=== PATIENT | male | born 1940 | race Caucasian/White ===

== ENCOUNTER 2021-02-07 12:06 | Inpatient (IN) ==
[2021-02-07 13:05] LABS: Basophils % 0.2 %; Eosinophils % 0.2 %
[2021-02-07 13:07] LABS: Hematocrit 45.8 % (37.5-50.1); Immature Granulocytes % 0.6 % (0-4); Immature Platelets 6.7 % (1.1-6.1); Lymphocytes # 1.4 K/mcL (0.6-4.6); Lymphocytes % 29.1 %; Mean Corpuscular HGB Conc 32.8 g/dL (31.6-35.5); Mean Corpuscular Hemoglobin 29.9 pg (28.0-33.3); Mean Corpuscular Volume 91.2 fL (83.0-100.0); Mean Platelet Volume 10.9 fL (9.4-12.4); Monocytes # 0.3 K/mcL (0.0-1.3); Monocytes % 6.8 %; Platelet Count 106 K/mcL (140-400); Red Blood Count 5.02 M/mcL (4.19-5.50); Red Cell Distribution Width 12.8 % (11.5-14.5); Segmented Neutrophils % 63.1 %; White Blood Count 4.8 K/mcL (4.3-11.1)
[2021-02-07 13:09] LABS: Platelet Estimate Slight Decrease (Normal)
[2021-02-07 13:13] LABS: INR 1.1; Prothrombin Time 11.9 Seconds (9.4-12.1)
[2021-02-07 13:15] LABS: Activated Partial Thrombo Time 30.3 Seconds (26.0-36.0)
[2021-02-07 13:17] LABS: VBG HCO3 26 mEq/L (21-27); VBG PCO2 47 mmHg (41-51); VBG PH 7.35 pH Units (7.32-7.42); VBG PO2 29 mmHg (25-50)
[2021-02-07 13:21] LABS: Alanine Aminotransferase 41 Units/L (7-52); Albumin 3.5 g/dL (3.5-5.7); Albumin/Globulin Ratio 1.2 (1.1-2.2); Alkaline Phosphatase 70 Units/L (34-104); Aspartate Amino Transferase 73 Units/L (13-39); BUN/Creatinine Ratio 20 (6-26); Bilirubin,Total 0.8 mg/dL (0.3-1.0); Blood Urea Nitrogen 22 mg/dL (8-23); Calcium 8.9 mg/dL (8.6-10.3); Carbon Dioxide 23 mEq/L (23-29); Chloride 102 mEq/L (98-107); Glucose 132 mg/dL (70-105); Osmolality,Calculated 285 (280-300); Potassium 4.2 mEq/L (3.5-5.1); Sodium 135 mEq/L (136-145); Total Protein 6.5 g/dL (6.4-8.9); eGFR For African Americans > 60 (> 60); eGFR For Non-African Americans > 60 (> 60)
[2021-02-07 13:31] LABS: Troponin I 0.16 ng/mL (< 0.04)
[2021-02-07] MEDS ORDERED: Isovue-370 500 ML BOTTLE IVP ONE (13:36)
[2021-02-07] MEDS ORDERED: Aspirin 325 MG TABLET PO ONE (15:25)
[2021-02-07] MEDS ORDERED: Dexamethasone Sodium Phos/PF 10 MG/ML VIAL IVP ONE (15:26)
[2021-02-07] MEDS ORDERED: Naloxone 0.4 MG/ML INJ IVP PRN (17:04)
[2021-02-07] MEDS: 0.9 % Sodium Chloride 1,000 ML IVC SCH (17:59)
[2021-02-08] MEDS ORDERED: 0.9 % Sodium Chloride 1,000 ML IV ONE (04:34)
[2021-02-08] MEDS: *HR* Enoxaparin 40 MG/0.4 ML SYRINGE SQ SCH (05:54)
[2021-02-08] MEDS: 0.9 % Sodium Chloride 1,000 ML IVC SCH (05:56)
[2021-02-08] MEDS: dexAMETHasone 4 MG TABLET PO SCH (18:30)
[2021-02-09] MEDS: *HR* Enoxaparin 40 MG/0.4 ML SYRINGE SQ SCH (05:13)
[2021-02-09 05:47] LABS: Hematocrit 38.4 % (37.5-50.1); Immature Granulocytes % 0.7 % (0-4); Lymphocytes # 1.1 K/mcL (0.6-4.6); Lymphocytes % 19.2 %; Mean Corpuscular HGB Conc 32.8 g/dL (31.6-35.5); Mean Corpuscular Hemoglobin 29.7 pg (28.0-33.3); Mean Corpuscular Volume 90.6 fL (83.0-100.0); Mean Platelet Volume 10.7 fL (9.4-12.4); Monocytes # 0.3 K/mcL (0.0-1.3); Monocytes % 5.2 %; Neutrophils # 4.2 K/mcL (1.6-8.9); Platelet Count 129 K/mcL (140-400); Red Blood Count 4.24 M/mcL (4.19-5.50); Red Cell Distribution Width 12.5 % (11.5-14.5); Segmented Neutrophils % 74.9 %; White Blood Count 5.6 K/mcL (4.3-11.1)
[2021-02-09 05:48] LABS: Hemoglobin 12.6 g/dL (12.9-16.9)
[2021-02-09 06:04] LABS: BUN/Creatinine Ratio 33 (6-26); Blood Urea Nitrogen 28 mg/dL (8-23); Calcium 8.1 mg/dL (8.6-10.3); Carbon Dioxide 21 mEq/L (23-29); Chloride 111 mEq/L (98-107); Glucose 184 mg/dL (70-105); Osmolality,Calculated 296 (280-300); Potassium 4.4 mEq/L (3.5-5.1); Sodium 138 mEq/L (136-145); eGFR For African Americans > 60 (> 60); eGFR For Non-African Americans > 60 (> 60)
[2021-02-09] MEDS: dexAMETHasone 4 MG TABLET PO SCH (08:19)
[2021-02-10] MEDS: *HR* Enoxaparin 40 MG/0.4 ML SYRINGE SQ SCH (04:57)
[2021-02-10 05:37] LABS: Basophils % 0.2 %; Hematocrit 38.7 % (37.5-50.1); Hemoglobin 13.1 g/dL (12.9-16.9); Immature Granulocytes % 0.7 % (0-4); Lymphocytes % 17.6 %; Mean Corpuscular HGB Conc 33.9 g/dL (31.6-35.5); Mean Corpuscular Hemoglobin 30.5 pg (28.0-33.3); Mean Corpuscular Volume 90.2 fL (83.0-100.0); Mean Platelet Volume 10.3 fL (9.4-12.4); Monocytes # 0.4 K/mcL (0.0-1.3); Monocytes % 6.2 %; Neutrophils # 4.4 K/mcL (1.6-8.9); Platelet Count 167 K/mcL (140-400); Red Blood Count 4.29 M/mcL (4.19-5.50); Red Cell Distribution Width 12.4 % (11.5-14.5); Segmented Neutrophils % 75.3 %; White Blood Count 5.8 K/mcL (4.3-11.1)
[2021-02-10 06:16] LABS: BUN/Creatinine Ratio 36 (6-26); Blood Urea Nitrogen 30 mg/dL (8-23); Calcium 8.4 mg/dL (8.6-10.3); Carbon Dioxide 21 mEq/L (23-29); Chloride 112 mEq/L (98-107); Glucose 166 mg/dL (70-105); Osmolality,Calculated 302 (280-300); Potassium 4.2 mEq/L (3.5-5.1); Sodium 141 mEq/L (136-145); eGFR For African Americans > 60 (> 60); eGFR For Non-African Americans > 60 (> 60)
[2021-02-10] MEDS: dexAMETHasone 4 MG TABLET PO SCH ×2 (08:36→09:00)
[2021-02-10] MEDS ORDERED: Haloperidol Lactate 5 MG/ML VIAL IM ONE (13:15)
[2021-02-10] MEDS ORDERED: *HR* Metoprolol 5 MG/5 ML VIAL IVP PRN (14:47)
[2021-02-10] MEDS ORDERED: Isovue-370 500 ML BOTTLE IVP ONE (15:04)
[2021-02-10] MEDS ORDERED: Magnesium Sulfate 1 GM/102 ML PIGGYBACK IVPB ONE (20:00)
[2021-02-10] MEDS: Dexmedetomidine HCl 400 MCG/100 ML MLS IVC SCH (21:18)
[2021-02-10] MEDS ORDERED: Acetaminophen 325 MG TABLET PO PRN (23:02)
[2021-02-10] MEDS ORDERED: Acetaminophen 650 MG RECTAL SUPP RC PRN (23:24)
[2021-02-11] MEDS ORDERED: OLANZapine 10 MG VIAL IM ONE (02:19)
[2021-02-11 05:05] LABS: Basophils % 0.1 %; Hematocrit 39.6 % (37.5-50.1); Hemoglobin 13.3 g/dL (12.9-16.9); Immature Granulocytes % 0.7 % (0-4); Lymphocytes # 1.2 K/mcL (0.6-4.6); Lymphocytes % 15.8 %; Mean Corpuscular HGB Conc 33.6 g/dL (31.6-35.5); Mean Corpuscular Hemoglobin 30.7 pg (28.0-33.3); Mean Corpuscular Volume 91.5 fL (83.0-100.0); Mean Platelet Volume 10.2 fL (9.4-12.4); Monocytes # 0.4 K/mcL (0.0-1.3); Neutrophils # 5.9 K/mcL (1.6-8.9); Platelet Count 186 K/mcL (140-400); Red Blood Count 4.33 M/mcL (4.19-5.50); Red Cell Distribution Width 12.3 % (11.5-14.5); Segmented Neutrophils % 78.4 %; White Blood Count 7.6 K/mcL (4.3-11.1)
[2021-02-11] MEDS: *HR* Enoxaparin 40 MG/0.4 ML SYRINGE SQ SCH (05:20)
[2021-02-11 05:36] LABS: Troponin I 0.06 ng/mL (< 0.04)
[2021-02-11 05:50] LABS: Alanine Aminotransferase 87 Units/L (7-52); Albumin/Globulin Ratio 1.2 (1.1-2.2); Alkaline Phosphatase 66 Units/L (34-104); Aspartate Amino Transferase 99 Units/L (13-39); BUN/Creatinine Ratio 30 (6-26); Bilirubin,Total 1.2 mg/dL (0.3-1.0); Blood Urea Nitrogen 36 mg/dL (8-23); Calcium 8.4 mg/dL (8.6-10.3); Carbon Dioxide 22 mEq/L (23-29); Chloride 113 mEq/L (98-107); Globulin 2.6 g/dL (2.4-3.5); Glucose 175 mg/dL (70-105); Magnesium 2.6 mg/dL (1.6-2.6); Osmolality,Calculated 313 (280-300); Potassium 3.9 mEq/L (3.5-5.1); Sodium 145 mEq/L (136-145); Total Protein 5.6 g/dL (6.4-8.9); eGFR For African Americans > 60 (> 60); eGFR For Non-African Americans 57 (> 60)
[2021-02-11] MEDS: dexAMETHasone 4 MG TABLET PO SCH (09:29)
[2021-02-11] MEDS: Piperacillin/Tazobactam 3.375 GM in 0.9 % Sodium Chloride Mini Bag 100 ML IVPB SCH ×3 (09:30→23:40)
[2021-02-11] MEDS ORDERED: OLANZapine 10 MG VIAL IM SCH (13:45)
[2021-02-11] MEDS: OLANZapine 10 MG VIAL IM SCH ×2 (16:14→21:03)
[2021-02-11] MEDS: Dexmedetomidine HCl 400 MCG/100 ML MLS IVC SCH ×2 (16:24→21:20)
[2021-02-12 03:56] LABS: Hemoglobin 13.8 g/dL (12.9-16.9); Mean Corpuscular HGB Conc 32.1 g/dL (31.6-35.5); Mean Corpuscular Hemoglobin 30.3 pg (28.0-33.3); Mean Corpuscular Volume 94.5 fL (83.0-100.0); Mean Platelet Volume 10.2 fL (9.4-12.4); Platelet Count 202 K/mcL (140-400); Red Blood Count 4.55 M/mcL (4.19-5.50); Red Cell Distribution Width 12.9 % (11.5-14.5); White Blood Count 6.4 K/mcL (4.3-11.1)
[2021-02-12 04:07] LABS: BUN/Creatinine Ratio 32 (6-26); Blood Urea Nitrogen 35 mg/dL (8-23); Calcium 8.8 mg/dL (8.6-10.3); Carbon Dioxide 20 mEq/L (23-29); Chloride 116 mEq/L (98-107); Glucose 153 mg/dL (70-105); Osmolality,Calculated 321 (280-300); Potassium 3.8 mEq/L (3.5-5.1); Sodium 150 mEq/L (136-145); eGFR For African Americans > 60 (> 60); eGFR For Non-African Americans > 60 (> 60)
[2021-02-12] MEDS: *HR* Enoxaparin 40 MG/0.4 ML SYRINGE SQ SCH (05:04)
[2021-02-12] MEDS ORDERED: WATER IM ONE (08:15)
[2021-02-12] MEDS ORDERED: [UNRECOGNIZED DRUG - OTHER] IM ONE (08:15)
[2021-02-12] MEDS: Piperacillin/Tazobactam 3.375 GM in 0.9 % Sodium Chloride Mini Bag 100 ML IVPB SCH ×2 (08:25→18:35)
[2021-02-12] MEDS: OLANZapine 10 MG VIAL IM SCH (08:27)
[2021-02-12] MEDS ORDERED: Morphine Sulfate Oral CONC 10 MG/0.5 ML ORAL.SYG SL PRN (11:29)
[2021-02-12] MEDS: D5% in Water 500 ML IVC SCH (13:18)
[2021-02-12] MEDS: Dexmedetomidine HCl 400 MCG/100 ML MLS IVC SCH (20:01)
[2021-02-13] MEDS: Piperacillin/Tazobactam 3.375 GM in 0.9 % Sodium Chloride Mini Bag 100 ML IVPB SCH ×3 (00:15→16:28)
[2021-02-13 06:08] LABS: BUN/Creatinine Ratio 36 (6-26); Blood Urea Nitrogen 36 mg/dL (8-23); Calcium 9.2 mg/dL (8.6-10.3); Carbon Dioxide 24 mEq/L (23-29); Chloride 115 mEq/L (98-107); Glucose 258 mg/dL (70-105); Osmolality,Calculated 323 (280-300); Potassium 3.9 mEq/L (3.5-5.1); Sodium 148 mEq/L (136-145); eGFR For African Americans > 60 (> 60); eGFR For Non-African Americans > 60 (> 60)
[2021-02-13] MEDS: Dexmedetomidine HCl 400 MCG/100 ML MLS IVC SCH (12:41)
[2021-02-13] MEDS: *HR* Enoxaparin 40 MG/0.4 ML SYRINGE SQ SCH (16:16)
[2021-02-13] MEDS ORDERED: D5% in Water 1,000 ML IVC SCH (16:30)
[2021-02-13] MEDS ORDERED: OLANZapine 10 MG VIAL IM ONE ×2 (22:56→23:40)
[2021-02-13] MEDS ORDERED: Water for inj. (sterile) 10 ML ONE ×2 (23:02→23:48)
[2021-02-14] MEDS: Piperacillin/Tazobactam 3.375 GM in 0.9 % Sodium Chloride Mini Bag 100 ML IVPB SCH ×3 (01:45→18:13)
[2021-02-14] MEDS: *HR* Enoxaparin 40 MG/0.4 ML SYRINGE SQ SCH (06:13)
[2021-02-14] MEDS: Dexmedetomidine HCl 400 MCG/100 ML MLS IVC SCH ×2 (06:38→18:07)
[2021-02-14 09:24] LABS: Hemoglobin 13.6 g/dL (12.9-16.9); Mean Corpuscular HGB Conc 32.4 g/dL (31.6-35.5); Mean Corpuscular Hemoglobin 30.1 pg (28.0-33.3); Mean Corpuscular Volume 92.9 fL (83.0-100.0); Mean Platelet Volume 9.8 fL (9.4-12.4); Platelet Count 223 K/mcL (140-400); Red Blood Count 4.52 M/mcL (4.19-5.50); Red Cell Distribution Width 12.9 % (11.5-14.5); White Blood Count 7.3 K/mcL (4.3-11.1)
[2021-02-14 09:45] LABS: Alanine Aminotransferase 46 Units/L (7-52); Albumin 2.8 g/dL (3.5-5.7); Albumin/Globulin Ratio 1.1 (1.1-2.2); Alkaline Phosphatase 59 Units/L (34-104); Aspartate Amino Transferase 41 Units/L (13-39); BUN/Creatinine Ratio 47 (6-26); Bilirubin,Total 0.8 mg/dL (0.3-1.0); Blood Urea Nitrogen 42 mg/dL (8-23); Calcium 8.9 mg/dL (8.6-10.3); Carbon Dioxide 24 mEq/L (23-29); Chloride 120 mEq/L (98-107); Globulin 2.6 g/dL (2.4-3.5); Glucose 174 mg/dL (70-105); Magnesium 2.5 mg/dL (1.6-2.6); Osmolality,Calculated 327 (280-300); Potassium 3.8 mEq/L (3.5-5.1); Sodium 151 mEq/L (136-145); Total Protein 5.4 g/dL (6.4-8.9); eGFR For African Americans > 60 (> 60); eGFR For Non-African Americans > 60 (> 60)
[2021-02-14] MEDS ORDERED: Vancomycin 1,250 MG/262.5 ML IV.SOLN IVPB SCH (18:00)
[2021-02-14] MEDS: D5% in Water 1,000 ML IVC SCH (21:38)
[2021-02-15] MEDS: Piperacillin/Tazobactam 3.375 GM in 0.9 % Sodium Chloride Mini Bag 100 ML IVPB SCH ×3 (02:14→16:19)
[2021-02-15] MEDS: Dexmedetomidine HCl 400 MCG/100 ML MLS IVC SCH ×2 (03:31→10:41)
[2021-02-15 05:55] LABS: Mean Corpuscular HGB Conc 31.7 g/dL (31.6-35.5); Mean Corpuscular Hemoglobin 29.5 pg (28.0-33.3); Mean Corpuscular Volume 93.2 fL (83.0-100.0); Mean Platelet Volume 9.9 fL (9.4-12.4); Platelet Count 216 K/mcL (140-400); White Blood Count 6.1 K/mcL (4.3-11.1)
[2021-02-15 06:19] LABS: BUN/Creatinine Ratio 41 (6-26); Blood Urea Nitrogen 41 mg/dL (8-23); Calcium 8.5 mg/dL (8.6-10.3); Carbon Dioxide 23 mEq/L (23-29); Chloride 118 mEq/L (98-107); Glucose 255 mg/dL (70-105); Osmolality,Calculated 325 (280-300); Potassium 4.1 mEq/L (3.5-5.1); Sodium 148 mEq/L (136-145); eGFR For African Americans > 60 (> 60); eGFR For Non-African Americans > 60 (> 60)
[2021-02-15] MEDS: *HR* Enoxaparin 40 MG/0.4 ML SYRINGE SQ SCH (06:51)
[2021-02-15] MEDS ORDERED: Morphine Sulfate 2 MG/ML SYRINGE IVP PRN (14:08)
[2021-02-15] MEDS: D5% in Water 1,000 ML IVC SCH (15:46)
[2021-02-15] MEDS ORDERED: Atropine 1% Opth Drops 100 DROP/5 ML BOTTLE SL PRN (17:22)
[2021-02-15] MEDS ORDERED: *HR* LORazepam 2 MG/ML VIAL IVP PRN (17:22)
[2021-02-15] MEDS: D5% in Water 500 ML IVC SCH ×3 (19:29→21:13)
[2021-02-15] MEDS: *HR* LORazepam Oral Conc 2 MG/ML SL PRN (22:06)
[2021-02-16] MEDS: D5% in Water 500 ML IVC SCH ×2 (00:13→00:14)
[2021-02-16] MEDS: *HR* LORazepam Oral Conc 2 MG/ML SL PRN ×2 (08:10→11:50)
[2021-02-16] MEDS: Morphine Sulfate Oral CONC 10 MG/0.5 ML ORAL.SYG SL PRN ×2 (09:51→21:38)
[2021-02-16] MEDS ORDERED: Scopolamine Patch 1.5 MG PATCH.TD72 TD SCH (12:30)
[2021-02-17] MEDS ORDERED: Morphine Sulfate Oral CONC 10 MG/0.5 ML ORAL.SYG SL ONE
[2021-02-17] MEDS: Morphine Sulfate Oral CONC 10 MG/0.5 ML ORAL.SYG SL PRN ×5 (02:43→22:24)
[2021-02-17] MEDS: *HR* LORazepam Oral Conc 2 MG/ML SL PRN (03:19)
[2021-02-17] MEDS ORDERED: Haloperidol Lactate 5 MG/ML VIAL IVP PRN (11:42)
[2021-02-17] MEDS ORDERED: Atropine 1% Opth Drops 100 DROP/5 ML BOTTLE SL PRN (11:58)
[2021-02-17] MEDS: Haloperidol Oral Conc 10 MG/5 ML UDC PO PRN (17:46)
[2021-02-17 18:43] VITALS: BP 137/74; PULSE 81; O2SAT 98
[2021-02-17 19:41] VITALS: TEMP 98.5
[2021-02-18] MEDS: Morphine Sulfate Oral CONC 10 MG/0.5 ML ORAL.SYG SL PRN (02:20)
[2021-02-18] MEDS: Haloperidol Oral Conc 10 MG/5 ML UDC PO PRN (02:20)
== END 2021-02-18 04:09 | disposition expired | DRG 177 ==
LOC: 3BNU 12:06 → EMEROOARM 12:06 → 3BNU 17:16 → SUATTDRO 02-08 15:06 → 2NNU 02-10 19:18 → 3NENU 02-11 12:57 → 2ANU 02-16 17:30
PROVIDERS: ADMIT Hospitalist; ATTEND Internal Medicine